=== PATIENT | female | born 1960 | race American Indian/Alaskan Native ===

== ENCOUNTER 2017-02-16 13:44 | Inpatient (IN) | payer BC ==
[2017-02-16] MEDS ORDERED: Magnesium Sulfate 2 GM in Sodium Chloride 0.9% 100 ML IVPB ONE (13:56)
[2017-02-16] MEDS: Albuterol-Ipratrop 3 mg / 0.5 (3 ml) UD IH SCH ×3 (14:03→21:03)
[2017-02-16 14:16] LABS: ADD MANUAL DIFF? NO
[2017-02-16 14:20] LABS: BASO % 0.4 % (0.0-3.0); EOS # 0.3 (0.0-0.7); EOS % 4.7 % (1.5-5.0); GRAN # 2.99 (1.4-6.5); GRAN % 54.1 % (50.0-68.0); HEMATOCRIT 41.9 % (36.0-48.0); LYMPH # 1.7 (1.2-3.4); LYMPH % 29.8 % (22.0-35.0); MEAN CELL VOLUME 86.2 fL (80.0-105.0); MEAN CORPUSCULAR HEMOGLOBIN 27.8 pg (25.0-35.0); MEAN CORPUSCULAR HGB CONC 32.2 g/dl (31.0-37.0); MEAN PLATELET VOLUME 10.5 fl (7.0-11.0); MONO # 0.6 (0.1-0.6); PLATELET COUNT 207 10^3/uL (120.0-450.0); WHITE BLOOD COUNT 5.5 10^3/ul (4.5-11.0)
[2017-02-16 14:21] LABS: BASO # 0.02 K/mm3 (0.0-2.0); VENOUS BLOOD PH 7.37 (7.32-7.43)
--- NOTE | 2017-02-16 14:22 | ED PDOC ---
Arrival/HPI - General Chief Complaint: Respiratory Distress Time Seen by Provider: 02/16/17 13:48 Historian: Patient - History of Present Illness Narrative History of Present Illness (Text): 02/16/17 13:40 A 56 year old female, whose past medical history includes asthma, seizures, and emphysema presents to the emergency department with severe respiratory distress. Patient reports shortness of breath began 3 weeks ago and worsened last night. She notes a productive cough with a yellow-white sputum. She does not have history of blood clots. Patient denies, fever, chest pain, or any other symptoms at this time. Time/Duration: > week (3 weeks) Symptom Onset: Gradual Symptom Course: Worsening Quality: Other Severity Level: Severe Activities at Onset: Rest Context: Home Past Medical History - Provider Review Nursing Documentation Reviewed: Yes - Reproductive Menopause: Yes - Cardiac Hx Hypertension: Yes - Pulmonary Hx Asthma: Yes Hx Emphysema: Yes - Neurological Hx Seizures: Yes (LAST WAS 7MO AGO) - Psychiatric Hx Substance Use: No Family/Social History - Physician Review Nursing Documentation Reviewed: Yes Family/Social History: Unknown Family HX Smoking Status: Unknown If Ever Smoked Hx Alcohol Use: Yes Frequency of alcohol use: Socially Hx Substance Use: No Allergies/Home Meds Allergies/Adverse Reactions: Allergies No Known Allergies Allergy (Verified 02/16/17 13:56) Home Medications: Home Meds Medication Instructions Recorded Confirmed Budesonide/Formoterol Fumarate 1 aer IH DAILY 04/10/13 04/10/13 [Symbicort] Fluticasone Propionate/Salme 1 puff IH BID 04/10/13 04/10/13 [Advair Diskus 500/50] Levetiracetam 500 mg PO BID 04/10/13 04/10/13 Montelukast Sodium 10 mg PO DAILY 04/10/13 04/10/13 Theophylline 300 mg PO DAILY 04/10/13 04/10/13 Tiotropium [place] [Spiriva] 18 mcg IH 04/10/13 04/10/13 Review of Systems - Physician Review All systems were reviewed & negative as marked: Yes - Review of Systems Constitutional: absent: Fevers Respiratory: SOB, Cough, Sputum Cardiovascular: absent: Chest Pain Physical Exam Vital Signs Reviewed: Yes Vital Signs Temp Pulse Resp BP Pulse Ox 02/16/17 14:00 22 94 L 02/16/17 13:48 99.4 F 116 H 22 163/119 H 100 Temperature: Afebrile Blood Pressure: Hypertensive Pulse: Tachycardic Respiratory Rate: Normal Appearance: Positive for: Non-Toxic Pain Distress: None Mental Status: Positive for: Alert and Oriented X 3 - Systems Exam Head: Present: Atraumatic, Normocephalic Pupils: Present: PERRL Extroacular Muscles: Present: EOMI Conjunctiva: Present: Normal Mouth: Present: Moist Mucous Membranes Neck: Present: Normal Range of Motion Respiratory/Chest: Present: Respiratory Distress, Accessory Muscle Use, Wheezes (Diffuse wheezing) Cardiovascular: Present: Normal S1, S2, Tachycardic. No: Murmurs Abdomen: Present: Normal Bowel Sounds. No: Tenderness, Distention, Peritoneal Signs Upper Extremity: Present: Normal Inspection. No: Cyanosis, Edema Lower Extremity: Present: Normal Inspection. No: Edema Neurological: Present: GCS=15, Speech Normal Skin: Present: Warm, Dry, Normal Color. No: Rashes Psychiatric: Present: Alert, Oriented x 3, Normal Insight, Normal Concentration Medical Decision Making ED Course and Treatment: EKG: Ordered, reviewed, and independently interpreted the EKG. Rate : 135 BPM Rhythm : Sinus tachycardia Interpretation : Nonspecific ST/T changes. 02/16/17 14:[address] Heart, who states he will take a look at the EKG and call back. Patient placed on Bi-Pap. On reevaluation, the patient states she feels better. Her breathing is not as labored anymore. 02/16/17 14:07 Dr. Heart called back. States patient EKG shows tachycardia and no STEMI. 02/16/17 14:39 Repeat EKG: Ordered, reviewed, and independently interpreted the EKG. Rate : 134 BPM Rhythm : Sinus tachycardia Interpretation : Nonspecific ST/T changes, no STEMI 02/16/17 15:10 Chest X-ray: Creator : Tracey Goode MD COMPARISON: Chest x-ray performed 05/22/14 FINDINGS: Examination limited by habitus. External while thin leads obscure evaluation of the underlying parenchyma. LUNGS: 10 x 6 mm ovoid density projecting over the right posterior 5th ribs of unclear significance. Nodule cannot be excluded. Linear scarring bilaterally particularly within the right mid lung zone and left lower lobe. Please note that chest x-ray has limited sensitivity for the detection of pulmonary masses. PLEURA: No significant pleural effusion identified. No definite pneumothorax . CARDIOVASCULAR: Heart size appears within normal limits. Atherosclerotic calcification of the aorta. OSSEOUS STRUCTURES: No acute osseous abnormality is detected. VISUALIZED UPPER ABDOMEN: Unremarkable. OTHER FINDINGS: None. IMPRESSION: 10 x 6 mm ovoid density projecting over the right posterior 5th ribs of unclear significance. Nodule cannot be excluded. Outpatient CT of the chest suggested for further evaluation if indicated. Bilateral linear atelectasis or scarring particularly within the right mid lung zone and left lower lobe. 02/16/17 15:[address] Tang, who is aware and agrees with the plan to admit the patient to Telemetry under her services for status asthmaticus. I have discussed the results and plan with the patient, who expresses understanding. Patient given the opportunity to ask question, all questions were answered and there is agreement with the plan to be admitted to the hospital. - Critical Care Critical Care Minutes: 30 minutes - Lab Interpretations Lab Results: 02/16/17 13:45 02/16/17 13:45 Lab Results 02/16/17 13:45: Theophylline 6 L 02/16/17 13:45: Sodium 139, Chloride 104, Potassium 3.6, Carbon Dioxide 28, Anion Gap 11, BUN 12, Creatinine 0.9, Est GFR ( Amer) > 60, Est GFR (Non- Af Amer) > 60, Random Glucose 85, Calcium 9.7, Total Bilirubin 0.5, AST 34, ALT 37, Alkaline Phosphatase 84, Troponin I < 0.01, NT-Pro-B Natriuret Pep 146, Total Protein 7.5, Albumin 4.0, Globulin 3.5, Albumin/Globulin Ratio 1.1 02/16/17 13:45: pO2 64 H, VBG pH 7.37, VBG pCO2 53.0, VBG HCO3 30.6 H, VBG Total CO2 32.2 H, VBG O2 Sat (Calc) 94.0 H, VBG Base Excess 4.0 H, VBG Potassium 3.6, Sodium 140.0, Chloride 107.0, Glucose 86, Lactate 1.0, FiO2 21.0 , Venous Blood Potassium 3.6 02/16/17 13:45: WBC 5.5, RBC 4.86, Hgb 13.5, Hct 41.9, MCV 86.2, MCH 27.8, MCHC 32.2, RDW 15.0 H, Plt Count 207, MPV 10.5, Gran % 54.1, Lymph % (Auto) 29.8, [place] % (Auto) 11.0 H, Eos % (Auto) 4.7, Baso % (Auto) 0.4, Gran # 2.99, Lymph # 1.7, [place] # 0.6, Eos # 0.3, Baso # 0.02 I have reviewed the lab results: Yes - RAD Interpretation Radiology Orders: 02/16/17 13:57 CHEST PORTABLE [RAD] Stat - Medication Orders Current Medication Orders: Discontinued Medications Albuterol Sulfate (Albuterol 0.083% Inhal Leslee (2.5 Mg/3 Ml) Ud) Confirm Administered Dose 5 mg .ROUTE .STK-MED ONE Stop: 02/16/17 15:44 Albuterol/Ipratropium (Duoneb 3 Mg/0.5 Mg (3 Ml) Ud) 3 ml IH Q15M AMANUEL Stop: 02/16/17 14:31 Last Admin: 02/16/17 14:08 Dose: 3 ml Aspirin (Aspirin Chewable) 324 mg PO STAT STA Stop: 02/16/17 14:08 Last Admin: 02/16/17 14:15 Dose: 324 mg Magnesium Sulfate 2 gm/ Sodium (Chloride) 104 mls @ 102 mls/hr IVPB ONCE ONE Stop: 02/16/17 14:57 Last Admin: 02/16/17 14:07 Dose: 102 mls/hr Sodium Chloride (Sodium Chloride 0.9%) 1,000 mls @ 999 mls/hr IV .Q1H1M STA Stop: 02/16/17 15:31 Last Admin: 02/16/17 15:47 Dose: 999 mls/hr Levofloxacin/Dextrose (Levaquin 750mg) 750 mg IVPB STAT STA Stop: 02/16/17 14:32 Last Admin: 02/16/17 15:50 Dose: 750 mg Methylprednisolone (Solu-Medrol) 125 mg IVP STAT STA Stop: 02/16/17 13:57 Last Admin: 02/16/17 14:02 Dose: 125 mg - Scribe Statement The provider has reviewed the documentation as recorded by the Kendell Ross training under [facility] All medical record entries made by the Scribe were at my direction and personally dictated by me. I have reviewed the chart and agree that the record accurately reflects my personal performance of the history, physical exam, medical decision making, and the department course for this patient. I have also personally directed, reviewed, and agree with the discharge instructions and disposition. Disposition/Present on Arrival - Present on Arrival Any Indicators Present on Arrival: No History of DVT/PE: No History of Uncontrolled Diabetes: No Urinary Catheter: No History of Decub. Ulcer: No History Surgical Site Infection Following: None - Disposition Have Diagnosis and Disposition been Completed?: Yes Diagnosis: Status asthmaticus Disposition: HOSPITALIZED Disposition Time: 13:00 Condition: STABLE
[2017-02-16 14:30] LABS: ALB/GLOB RATIO 1.1 (1.1-1.8); ALKALINE PHOSPHATASE 84 U/L (38-133); ALT/SGPT 37 U/L (7-56); AST/SGOT 34 U/L (15-39); BILIRUBIN,TOTAL 0.5 mg/dL (0.2-1.3); BLOOD UREA NITROGEN 12 mg/dL (7-21); CALCIUM 9.7 mg/dL (8.4-10.5); CARBON DIOXIDE 28 mmol/L (21-33); CHLORIDE 104 mmol/L (98-107); GFR AFRICAN-AMERICAN > 60; GLUCOSE,RANDOM 85 mg/dL (70-110); POTASSIUM 3.6 mmol/L (3.6-5.0); SODIUM 139 mmol/L (132-148); TOTAL PROTEIN 7.5 g/dL (5.8-8.3)
[2017-02-16] MEDS ORDERED: levoFLOXacin 750 mg in D5W 150 ML BAG IVPB STA (14:31)
[2017-02-16] MEDS ORDERED: Sodium Chloride 0.9% 1,000 ML IV STA (14:31)
[2017-02-16 14:47] LABS: TROPONIN I < 0.01 ng/mL
--- NOTE | 2017-02-16 15:07 | RAD ---
HISTORY: sob COMPARISON: Chest x-ray performed 05/22/14 TECHNIQUE: Chest, one view. FINDINGS: Examination limited by habitus. External while thin leads obscure evaluation of the underlying parenchyma. LUNGS: 10 x 6 mm ovoid density projecting over the right posterior 5th ribs of unclear significance. Nodule cannot be excluded. Linear scarring bilaterally particularly within the right mid lung zone and left lower lobe. Please note that chest x-ray has limited sensitivity for the detection of pulmonary masses. PLEURA: No significant pleural effusion identified. No definite pneumothorax . CARDIOVASCULAR: Heart size appears within normal limits. Atherosclerotic calcification of the aorta. OSSEOUS STRUCTURES: No acute osseous abnormality is detected. VISUALIZED UPPER ABDOMEN: Unremarkable. OTHER FINDINGS: None. IMPRESSION: 10 x 6 mm ovoid density projecting over the right posterior 5th ribs of unclear significance. Nodule cannot be excluded. Outpatient CT of the chest suggested for further evaluation if indicated. Bilateral linear atelectasis or scarring particularly within the right mid lung zone and left lower lobe.
[2017-02-16] MEDS ORDERED: Albuterol 0.083% Inhal Sol (2.5 mg/3 mL) UD ONE (15:43)
[2017-02-16 21:34] VITALS: BMI 35.4
[2017-02-16] MEDS ORDERED: Pneumococcal 23-Valent Vaccine IM ONE (21:34)
[2017-02-16] MEDS: MethylPREDNISolone 40 mg Vial IVP SCH (22:57)
[2017-02-17] MEDS: Albuterol-Ipratrop 3 mg / 0.5 (3 ml) UD IH SCH ×4 (02:16→19:42)
[2017-02-17] MEDS ORDERED: Albuterol-Ipratrop 3 mg / 0.5 (3 ml) UD IH ONE (06:35)
[2017-02-17] MEDS: Arformoterol 15 mcg/2 ml Inh Sol IH SCH ×2 (07:54→19:41)
[2017-02-17] MEDS: Budesonide 0.5 mg/2 ml Inhal Susp UD IH SCH ×2 (07:55→19:42)
--- NOTE | 2017-02-17 08:37 | HP ---
CHIEF COMPLAINT: Shortness of breath, respiratory distress. HISTORY OF PRESENT ILLNESS: The patient is a 56-year-old female with past medical history of asthma, seizure, emphysema, came to the Emergency Room with severe respiratory distress. The patient reports shortness of breath began 3 weeks ago and worsened last night. She noticed a productive cough with yellow white phlegm. She does not have history of blood clots. The patient denies fever or chills. No nausea, vomiting, or diarrhea. No hematuria or hematochezia. No swelling of the legs. No chest pain, no palpitation. PAST MEDICAL HISTORY: Hypertension, asthma, emphysema, history of seizures. Last seizure was 7 months ago. FAMILY HISTORY: Father and mother noncontributory. HABITS: No smoking, no drugs, no ethanol, only alcohol socially. ALLERGIES: No known allergies. MEDICATIONS: Symbicort, Advair, montelukast, Spiriva. REVIEW OF SYSTEMS: The patient seen and examined in the Emergency Room. Still coughing, shortness of breath. No fever, no chills. Having tachycardia. PHYSICAL EXAMINATION: VITAL SIGNS: Temperature 99.4, pulse 116, respiratory rate 22, blood pressure 160/119, pulse oximetry 100. HEENT: Head normocephalic, atraumatic. Eyes: PERRLA. Extraocular muscles intact. Conjunctivae are clear. Nose patent. Mucous membranes moist. NECK: Supple. No carotid bruit, JVD or thyromegaly. CHEST: Bilaterally symmetrical. HEART: S1, S2 positive. LUNGS: Positive wheezing bilaterally. ABDOMEN: Soft. Bowel sounds present. No organomegaly. EXTREMITIES: No edema, no cyanosis. NEUROLOGIC: The patient is awake, alert, moving all 4 extremities. LABORATORY DATA: White blood cells 5.5, hemoglobin 13.5, hematocrit 41.9, platelets 207. Sodium 139, potassium 3.6, BUN 12, creatinine 0.9, and glucose 85. ASSESSMENT AND PLAN: The patient is a 56-year-old female who came with exacerbation of asthma. Chest x-ray done, 10 x 6 mm density projecting over the right posterior fifth rib of unclear significance. Nodule cannot be excluded. Outpatient CT of the chest suggested for further evaluation if indicated. Bilateral linear atelectasis or scarring, particularly within the right middle lung zone and left lower lobe. Has history of asthma, seizures, emphysema. We admitted the patient for status asthmaticus. Pulmonary consult called. Methylprednisone, Levaquin given. EKG done shows sinus tachycardia, nonspecific ST changes and non-ST elevation myocardial infarction. Discussion done with Emergency Room physician. Plan is to admit the patient to telemetry . Gastrointestinal and deep venous thrombosis prophylaxis. Repeat labs. We will follow up. Dora Tang MD cc: [id number] TT: 02/17/2017 08:37:08 tn [id number]
[2017-02-17] MEDS: levoFLOXacin 500 MG TAB PO SCH (10:15)
[2017-02-17] MEDS: MethylPREDNISolone 40 mg Vial IVP SCH ×2 (10:18→21:30)
--- NOTE | 2017-02-17 13:35 | CON ---
DATE: 02/17/2017 REASON FOR CONSULTATION: Asthma. REFERRING PHYSICIAN: Dr. Tang The patient is a 56-year-old female, with past medical history significant for asthma, chronic obstructive pulmonary disease, positive former smoker, obstructive sleep apnea, seizure disorder, who presents to [facility] with a 4-day history of worsening shortness of breath at rest, dyspnea on exertion, cough, and sputum production. There is no history of chest pain, coughing up of blood or chest pain -- made worse with deep respirations. There is no history of temperatures, chills or infectious exposure. There is no history of night sweats, weight loss or appetite change prior to the above events. No history of leg or calf pains. No history of syncope or diaphoresis. No history of recent travel or trauma. REVIEW OF SYSTEMS: No history of nausea, vomiting or diarrhea. No acute urinary symptoms. No new neurologic or musculoskeletal complaints. Rest is negative. ALLERGIES: No known allergies. SOCIAL HISTORY: Positive for former tobacco usage. No alcohol. FAMILY HISTORY: No inheritable diseases. HOME MEDICATIONS: Include Keppra, Anoro Ellipta, Caleb-Dur, Singulair, Neurontin , and clonazepam. PHYSICAL EXAMINATION: GENERAL: The patient is not short of breath at rest. She is not using accessory muscles for breathing. VITAL SIGNS: Temperature is 98.2, pulse on the monitor is 94, respirations 19, blood pressure 166/106. Oxygen saturation on nasal cannula is 94%. HEENT: Normocephalic, atraumatic. No JVD. CARDIOVASCULAR: Positive S1, S2. No S3. LUNGS: Decreased breath sounds at the bases. Scattered bilateral rhonchi and wheezing are appreciated. EXTREMITIES: Mild edema. No cyanosis, no clubbing. Calves are nontender to palpation. GASTROINTESTINAL: Abdomen is soft, nontender, nondistended. Bowel sounds are positive. SKIN: No acute rash. NEUROLOGIC: Limited at the present time. PERTINENT LABORATORY DATA: Chest x-ray was done as a portable film -- in the Emergency Room. There is a small ovoid density projecting over the right posterior 5th rib -- of unclear significance. I am not sure that the density is even in the lungs. There are no other new significant changes -- compared to old films. CBC: White count 5.5, hemoglobin 13.5, hematocrit 41.9, platelets of 207. Complete metabolic profile is completely within normal limits. IMPRESSION: 1. Acute bronchitis. 2. Asthma. 3. Chronic obstructive pulmonary disease. 4. Obstructive sleep apnea. 5. Hypertension. PLAN: The patient presents to [facility] with a 4-day history of worsening pulmonary symptoms. I did review the chest x-ray as above. The x- ray was done in the Emergency Room -- as a portable film. There is a questionable small density -- projecting over the right posterior 5th rib -- of unclear significance. Again, I am not overly sure that this density is even in the lungs. I will proceed with another chest x-ray -- 2 view -- for better evaluation. On physical exam, there is mild to moderate bronchospasm noted. I will continue with the current nebulizer treatments and current intravenous steroids for now. Because of her age and above diagnoses, I will also start the patient on oral antibiotic therapy. There are no temperatures by history. There is no leukocytosis. The patient does state to feeling much better this morning -- compared to the past few days. She is clinically improved. Additional pulmonary intervention will be based on the above results, as well as the clinical status of the patient. I will discuss the above with Dr. Tang. Thank you very much for this pulmonary consultation. Luca Persaud MD cc: [id number] TT: 02/17/2017 13:34:11 Confirmation # [id number] Dictation # [id number] en MTDD
--- NOTE | 2017-02-17 15:56 | RAD ---
HISTORY: Followup. COMPARISON: Comparison made with prior study 02/16/2017 TECHNIQUE: Chest PA and lateral FINDINGS: LUNGS: Poor inspiration with low lung volumes, crowded bronchovascular markings and mild bibasilar atelectasis. Developing lower lobe infiltrates could be excluded followup radiographs. PLEURA: No significant pleural effusion identified. No pneumothorax apparent. CARDIOVASCULAR: Normal. OSSEOUS STRUCTURES: No significant abnormalities. VISUALIZED UPPER ABDOMEN: Normal. OTHER FINDINGS: None. IMPRESSION: Poor inspiration with low lung volumes, crowded bronchovascular markings and mild bibasilar atelectasis. Developing lower lobe infiltrates could be excluded followup radiographs.
--- NOTE | 2017-02-17 17:47 | CARD ---
APPROVED REPORT EKG Measurement Heart [id number] <Conclusion> Junctional tachycardia Nonspecific ST and T wave abnormality Abnormal ECG
[2017-02-18] MEDS: Albuterol-Ipratrop 3 mg / 0.5 (3 ml) UD IH SCH ×5 (01:46→19:55)
[2017-02-18 07:22] LABS: HEMATOCRIT 39.4 % (36.0-48.0); MEAN CELL VOLUME 86.6 fL (80.0-105.0); MEAN CORPUSCULAR HEMOGLOBIN 27.3 pg (25.0-35.0); MEAN CORPUSCULAR HGB CONC 31.5 g/dl (31.0-37.0); MEAN PLATELET VOLUME 10.3 fl (7.0-11.0); RED CELL DISTRIBUTION WIDTH 15.1 % (11.5-14.5); WHITE BLOOD COUNT 8.9 10^3/ul (4.5-11.0)
[2017-02-18 07:36] LABS: BLOOD UREA NITROGEN 14 mg/dL (7-21); CALCIUM 9.6 mg/dL (8.4-10.5); CARBON DIOXIDE 28 mmol/L (21-33); CHLORIDE 103 mmol/L (95-110); GFR AFRICAN-AMERICAN > 60; GLUCOSE,RANDOM 113 mg/dL (70-110); POTASSIUM 4.2 mmol/L (3.6-5.0); SODIUM 139 mmol/L (132-148)
--- NOTE | 2017-02-18 07:54 | PN ---
DATE: 02/17/2017 The patient is a 56-year-old female. The patient is seen and examined on the bedside. Still coughin g and having shortness of breath, but wheezing is less as compared to yesterday. No night sweats. N o swelling of the legs. No calf pains. No diaphoresis. No hematuria, no hematochezia. No fever, n o chills. PHYSICAL EXAMINATION: VITAL SIGNS: Temperature 98.2, pulse 94, respiratory rate 19, blood pressure 166/106, oxygen saturat ion on nasal cannula is 94%. HEENT: Head normocephalic, atraumatic. Eyes, PERRLA. Extraocular muscles intact. Conjunctivae augustus ar. Nose patent. Mucous membranes moist. NECK: Supple. No carotid bruit, no JVD, no thyromegaly. LUNGS: Decreased breath sounds at the bases, scattered bibasilar bilateral rhonchi and wheezing are appreciated. HEART: S1 and S2 positive. ABDOMEN: Soft. Bowel sounds positive. No organomegaly. EXTREMITIES: No edema, no cyanosis. Calves are nontender to palpation. NEUROLOGIC: The patient is awake, alert, moving all 4 extremities. No focal deficits. Oriented x 3 . LABORATORIES: White blood cells 5.5, hemoglobin 13.5, hematocrit 41.9, platelets 207. Sodium 139, p otassium 3.6, BUN 12, creatinine 0.9. AST 34, ALT 37. ASSESSMENT AND PLAN: The patient is a 56-year-old lady, came with exacerbation of asthma, acute bron chitis, chronic obstructive lung disease, obstructive sleep apnea syndrome, hypertension. There is a questionable density on the chest x-ray projecting over the right posterior 5th rib of unclear signi ficance. The patient is seen by hogshead hooper, Dr. Luca Persaud. He suggested chest x-ray 2-view f or better evaluation. Continue current bronchodilators, steroids. Oral IV antibiotics started. The patient was complaining about headache. I started Tylenol and blood pressure was high, started on a mlodipine. We will continue checking. Gastrointestinal and deep venous thrombosis prophylaxis. Rep eat labs. Will follow up. Dora Tang MD cc: [id number] TT: 02/18/2017 07:52:58 Confirmation # [id number] Dictation # [id number] en
[2017-02-18] MEDS: Budesonide 0.5 mg/2 ml Inhal Susp UD IH SCH ×2 (07:56→19:55)
[2017-02-18] MEDS: Arformoterol 15 mcg/2 ml Inh Sol IH SCH ×2 (07:56→19:55)
--- NOTE | 2017-02-18 08:39 | PN ---
DATE: 02/18/2017 SUBJECTIVE: The patient appears comfortable this morning. She is not short of breath at rest. PHYSICAL EXAMINATION: VITAL SIGNS: Temperature is 98.2, pulse 96, respirations 19, blood pressure 155 /100. Oxygen saturation on nasal cannula is 95%. HEENT: Normocephalic, atraumatic. No JVD. CARDIOVASCULAR: Positive S1, S2. No S3. LUNGS: Improved breath sounds at the bases. Much less rhonchi and wheezing are appreciated. EXTREMITIES: Mild edema. No cyanosis. No clubbing. Calves are nontender to palpation. GASTROINTESTINAL: Abdomen is soft, nontender, nondistended. Bowel sounds are positive. SKIN: No acute rash. NEUROLOGIC: Limited at the present time. PERTINENT LABORATORY DATA: Chest x-ray was repeated yesterday as a PA and lateral exam. There are chronic/scar-like changes noted at the bases. These changes were also seen back to films of 2013. There are no other densities/ masses identified. IMPRESSION: 1. Acute bronchitis. 2. Asthma. 3. Chronic obstructive pulmonary disease. 4. Obstructive sleep apnea. 5. Hypertension. PLAN: The patient appears very comfortable this morning. She is not short of breath at rest. Her cough is less. She states she is feeling much better overall. On physical exam, her bronchospasm is significantly less. I will continue with the current nebulizer treatments and decrease the intravenous steroids this morning. There is no significant alveolar-arterial gradient. Oxygen saturation is now 95% on nasal cannula. I would continue with the oral antibiotic therapy for now. There are no temperatures noted. There is no leukocytosis. Clinical status of the patient is significantly improved -- compared to the initial presentation. I have advised the patient to be out of bed as much as possible. I will discuss the above with the attending physician. Luca Persaud MD cc: [id number] TT: 02/18/2017 08:38:59 Confirmation # [id number] Dictation # [id number] en MTDD
[2017-02-18] MEDS: levoFLOXacin 500 MG TAB PO SCH (11:06)
[2017-02-18] MEDS: MethylPREDNISolone 40 mg Vial IVP SCH ×2 (11:21→21:01)
--- NOTE | 2017-02-18 16:17 | PN ---
DATE: 02/18/2017 SUBJECTIVE: The patient seen and examined on the bedside, sitting on the chair and still coughing, having shortness of breath. Wheezing is better, but still wheezing in all hunter of both lungs. PHYSICAL EXAMINATION: VITAL SIGNS: Temperature 98.2, pulse 96, respiratory rate 18 , blood pressure 150/100, oxygen saturation on nasal cannula is 95%. HEENT: Head normocephalic, atraumatic. Eyes PERRLA. Extraocular muscles intact. Conjunctivae clear. Nose patent. Mucous membranes moist. NECK: Supple. No carotid bruits, JVD or thyromegaly. CHEST: Symmetrical. HEART: S1, S2 positive. LUNGS: Positive wheezing bilaterally in both lungs, all quadrants. EXTREMITIES: No edema, no cyanosis. NEUROLOGIC: The patient awake, alert, moving all 4 extremities. No focal deficit. Oriented x 3. MEDICATIONS: Brovana, albuterol, DuoNeb, Levemir, potassium, levofloxacin, gabapentin, Levitra, amlodipine, famotidine, Solu-Medrol tapering doses. LABORATORY DATA: White blood cells 6.9, hemoglobin 12.4, hematocrit noted , platelets 213. Sodium noted, potassium 4.3, BUN noted creatinine 0.8, glucose 113. ASSESSMENT AND PLAN: The patient is a 56-year-old lady with hyperglycemia. Came with exacerbation of chronic obstructive pulmonary disease, asthma, acute bronchitis, obstructive sleep apnea syndrome, hypertension. The patient is getting better, but very slowly. Still getting tapering doses of steroids. Cough is less. Feeling much better. Continue bronchodilators. Gastrointestinal and deep venous thrombosis prophylaxis. Repeat labs. We will follow up. Dora Tang MD cc: [id number] TT: 02/18/2017 16:16:55 Confirmation # [id number] Dictation # [id number] sn MTDD
[2017-02-19] MEDS: Albuterol-Ipratrop 3 mg / 0.5 (3 ml) UD IH SCH ×3 (02:42→13:06)
[2017-02-19 07:40] VITALS: O2SAT 94
[2017-02-19] MEDS: Arformoterol 15 mcg/2 ml Inh Sol IH SCH (07:46)
[2017-02-19] MEDS: Budesonide 0.5 mg/2 ml Inhal Susp UD IH SCH (07:46)
[2017-02-19] MEDS: MethylPREDNISolone 40 mg Vial IVP SCH (10:15)
[2017-02-19] MEDS: levoFLOXacin 500 MG TAB PO SCH (10:16)
[2017-02-19 16:21] VITALS: BP 116/79; PULSE 86; RESP 21; TEMP 98.1
== END 2017-02-19 17:48 | disposition home or self-care (01) | DRG 191 ==
LOC: ED 13:44 → ERH 15:46 → 2RNO 22:17 → 5RNO 02-18 18:39
PROVIDERS: ADMIT Internal Medicine; ATTEND Internal Medicine
PROC: 5A09357 Assistance with Respiratory Ventilation, Less than 24 Consecutive Hours, Continuous Positive Airway Pressure (ICD-10-PCS; principal; 2017-02-17)
PROC: 3E0F7GC Introduction of Other Therapeutic Substance into Respiratory Tract, Via Natural or Artificial Opening (ICD-10-PCS; 2017-02-17)
DX: J44.1 Chronic obstructive pulmonary disease with (acute) exacerbation (principal); J45.902 Unspecified asthma with status asthmaticus; R56.9 Unspecified convulsions; J44.0 Chronic obstructive pulmonary disease with (acute) lower respiratory infection; J20.9 Acute bronchitis, unspecified; I10 Essential (primary) hypertension; G47.33 Obstructive sleep apnea (adult) (pediatric); R51 Headache; R73.9 Hyperglycemia, unspecified; Z87.891 Personal history of nicotine dependence; Z79.51 Long term (current) use of inhaled steroids

== ENCOUNTER 2017-07-21 11:39 | Emergency (ER) | payer OTHER, BC ==
[2017-07-21 11:52] VITALS: RESP 18; TEMP 98; O2SAT 99; BMI 38.0
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
[2017-07-21 13:40] VITALS: BP 148/89; PULSE 98
== END 2017-07-21 13:35 | disposition home or self-care (01) ==
LOC: ED 11:39
DX: M54.9 Dorsalgia, unspecified (principal)
CPT/HCPCS: 72070; 96372; 99285; J1885